=== PATIENT | male | born 1985 | race Caucasian/White ===

== ENCOUNTER → 2020-03-15 15:04 | Outpatient (CLI) | payer OTHER, SELFPAY ==
--- NOTE | ~2020-03-15 | XR_ITS ---
EXAMINATION: XR hip RT min 2V DATE: 03/15/2020 15:44 INDICATION: Right hip pain. TECHNIQUE: 2 views of right hip were obtained. COMPARISON: None. FINDINGS: Bone alignment is normal. No fracture. Right hip joint space is normal. IMPRESSION: 1. Normal right hip. Reviewed, dictated and finalized at location A. ING ANALYST IMPRESSION: 1. Normal right hip.
--- NOTE | ~2020-03-15 | XR_ITS ---
EXAMINATION: XR knee LT 3V DATE: 03/15/2020 15:45 INDICATION: Left knee pain. TECHNIQUE: 3 views of left knee on 4 radiographs were obtained. COMPARISON: None. FINDINGS: Bone alignment is normal. No fracture. Joint spaces are well maintained. There is no knee j oint effusion. There are multiple punctate densities overlying the soft tissues anterior and medial t o the proximal tibia. IMPRESSION: 1. Punctate densities overlying the soft tissues anterior and medial to the proximal tibia, which may be artifacts or less likely foreign bodies. Reviewed, dictated and finalized at location A. N BLEACHER IMPRESSION: 1. Punctate densities overlying the soft tissues anterior and medial to the pro ximal tibia, which may be artifacts or less likely foreign bodies.
--- NOTE | ~2020-03-15 | XR_ITS ---
EXAMINATION: XR knee RT 3V DATE: 03/15/2020 15:45 INDICATION: Right knee pain. TECHNIQUE: 3 views of right knee were obtained. COMPARISON: None. FINDINGS: Bone alignment is normal. No fracture. Joint spaces are well maintained. There is no knee j oint effusion. IMPRESSION: 1. Normal right knee. Reviewed, dictated and finalized at location A. NESS INFORMATION ANALYST IMPRESSION: 1. Normal right knee.
--- NOTE | ~2020-03-15 | XR_ITS ---
EXAMINATION: XR ankle RT min 3V DATE: 03/15/2020 15:45 INDICATION: Right ankle pain TECHNIQUE: Anteroposterior, oblique, mortise, and lateral views of the right ankle were obtained. COMPARISON: None. FINDINGS: Alignment is normal. No fracture. Joint spaces are well maintained. No ankle joint effusion. Modera te-sized plantar calcaneal spur. Additional small heterotopic ossicle 5 cm more distally along the pl wang aponeurosis. There is also heterotopic ossification likely along the peroneus longus tendon rodri ng the plantar aspect of the anterior calcaneus. IMPRESSION: 1. No acute osseous abnormality. 2. Plantar calcaneal spurs and small heterotopic ossification along the plantar aponeurosis. Reviewed, dictated and finalized at location B. TING FIELD ASSEMBLER
--- NOTE | ~2020-03-15 | XR_ITS ---
EXAMINATION: XR ankle LT min 3V DATE: 03/15/2020 15:46 INDICATION: Left ankle pain TECHNIQUE: Anteroposterior, oblique, mortise, and lateral views of the left ankle were obtained. COMPARISON: None. FINDINGS: Alignment is normal. There is approximately 1.2 cm long linear calcification without evident underlyi ng donor site along the lateral margin of the distal fibular diaphysis. There is underlying linear della cency crossing cortex but without evident fracture line extending across the trabecular or the medial , anterior posterior cortices suggests this could represent a nutrient foramen. No overlying soft tis madai swelling to suggest acute fracture. The calcific lesion is centered 8 cm proximal to the tip of t he lateral malleolus. Joint spaces are well maintained. No ankle joint effusion. IMPRESSION: 1. Small linear calcification in the soft tissues along the lateral margin of the distal left fibular diaphysis. There is a thin linear lucency across only the adjacent lateral cortex but no evident cor tical donor site or associated soft tissue swelling to suggest fracture. This most likely represents a nutrient foramen with adjacent dystrophic or atherosclerotic calcification but would correlate for point tenderness at this location. Reviewed, dictated and finalized at location B. L PAINTER IMPRESSION: 1. Small linear calcification in the soft tissues along the lateral margin of t he distal left fibular diaphysis. There is a thin linear lucency across only th e adjacent lateral cortex but no evident cortical donor site or associated soft tissue swelling to suggest fracture. This most likely represents a nutrient fo ramen with adjacent dystrophic or atherosclerotic calcification but would corre late for point tenderness at this location.
--- NOTE | ~2020-03-15 | XR_ITS ---
EXAMINATION: XR hip LT min 2V DATE: 03/15/2020 15:46 INDICATION: Left hip pain. TECHNIQUE: 2 views of left hip were obtained. COMPARISON: None. FINDINGS: Bone alignment is normal. No fracture. Left hip joint space is normal. IMPRESSION: 1. Normal left hip. Reviewed, dictated and finalized at location A. R BIKE MECHANIC IMPRESSION: 1. Normal left hip.
== END ==
PROVIDERS: PCP Internal Medicine; Visit Provider Internal Medicine
DX: M25.551 Pain in right hip (principal); M25.552 Pain in left hip; M25.561 Pain in right knee; M25.571 Pain in right ankle and joints of right foot; M77.32 Calcaneal spur, left foot; M77.31 Calcaneal spur, right foot; M79.89 Other specified soft tissue disorders
CPT/HCPCS: 73502; 73562; 73610

== ENCOUNTER 2020-11-24 07:44 | Emergency (ER) | payer OTHER, SELFPAY ==
[2020-11-24] VITALS (38 sets, daily range): BP systolic 122–160; BP diastolic 73–93; PULSE 43–94; RESP 12–22; TEMP 36.2–36.3; O2SAT 94–98
--- NOTE | ~2020-11-24 | XR_ITS ---
XR chest 2V DATE: 11/24/2020 08:12 INDICATION: Right chest pain for 2 weeks. Palpitations. TECHNIQUE: PA and lateral views COMPARISON: 09/24/2017 two-view chest 09/26/2017 CT pulmonary scan FINDINGS: Normal heart size. No hilar or mediastinal enlargement. No pulmonary infiltrate or consolidation, pleural effusion or pulmonary vascular congestion or pneumo thorax is detected. IMPRESSION: No active cardiopulmonary disease Reviewed, dictated and finalized at location A.
--- NOTE | 2020-11-24 07:55 | ECG_ITS ---
Measurements Intervals [place] Rate: 64 P: 26 NV: 148 QRS: -12 QRSD: 93 T: 22 QT: 386 QTc: 400 Interpretive Statements SINUS RHYTHM VOLTAGE CRITERIA FOR LVH BORDERLINE ECG Electronically Signed On 11-24-2020 11:16:11 CDT by Graham Salinas D.O.
--- NOTE | 2020-11-24 08:11 | ED.CHESTPAIN ---
HPI - Chest Pain General Chief Complaint: Chest Pain Stated Complaint: chest pain Time Seen by Provider: 11/24/20 07:47 Source: patient and RN notes reviewed Mode of arrival: ambulatory Limitations: no limitations History of Present Illness HPI narrative: This is a 35 year old male who presents for evaluation of right anterior chest pain. Patient states he has been having dull right anterior chest pain for 2 weeks. His pain seems to be worse with movement of arm, inspiration and changing positions. He denies associated nausea, vomiting, shortness of breath, cough or dizziness. He came to ER because last night his pain became worse. He rates his pain 3/10. He has not taken any thing for pain. He states 3 years ago he had similar pain and he was evaluated with stress test and specialist followup. He states his evaluation was unremarkable. He works out daily and he states his pain is not worse with working out. He admits to taking workout supplement with significant amount of caffeine. He also states he drinks 4-5 drinks daily but denies history of withdrawal symptoms. Related Data Home Medications Medication Instructions Recorded Confirmed No Home Medications 03/01/20 03/01/20 Allergies Allergy/AdvReac Type Severity Reaction Status Date / Time No Known Allergies Allergy Verified 11/24/20 07:53 Review of Systems Review of Systems: All systems reviewed & are unremarkable except as noted in HPI and below PMFSH Past Medical History Medical History Depression Family History Family History Mother Hypertension Father , Age 42 Brain Aneurysm No problems noted. Grandparent , in his 80's of Lung Cancer No problems noted. Grandparent , Age 80 of Stroke Myocardial infarct Grandparent Myocardial infarct Cerebrovascular accident Grandparent , Age 80 of Stroke No problems noted. Social History Social History Years smoked: 16 Smoking status: Former smoker Tobacco type: cigarettes Smoking end date: 02/19/15 Alcohol intake: current Drinks per week: 7 Substance use: never Gender identity (if verbalized by the patient): Male Exam Const: General: no acute distress and alert Orientation/consciousness: patient oriented x3 HENMT: Head: normocephalic and atraumatic Eyes: Pupils: Equal, round and reactive pupils present EOM: EOMs intact bilaterally Chest: Chest palpation & inspection: normal inspection of the chest Resp: Effort & Inspection: normal respiratory effort, no retractions and no use of accessory muscles Auscultation: clear to auscultation bilaterally Cardio: Rate: regular rate Rhythm: regular rhythm Heart sounds: no murmurs GI: GI Palp: Yes Soft to palpation, No Tenderness to palpation present (GI) and No Guarding due to palpation present (GI) Auscultation: normal bowel sounds Skin: General skin exam: normal color Rashes: no rashes Neuro: General: patient oriented x3, moves all extremities and CN's II-XI intact bilaterally Extrem: General: normal to inspection and no pedal edema Psych: Mental Status: mental status grossly normal Affect: normal affect Course Reevaluation(s) Reevaluation #1: I have discussed with patient labs showing elevated creatinine. His chest pain is atypical with negative troponin, negative d dimer. Equal arm pulse. Unlikely Aortic aneursym or dissection. He will follow up with PCP Date: 11/24/20 Time: 12:38 Vital Signs Vital signs: Vital Signs Temperature 97.1 F L 11/24/20 07:47 Pulse Rate 70 11/24/20 07:47 Respiratory Rate 16 11/24/20 07:47 Blood Pressure 160/90 H 11/24/20 07:47 Pulse Oximetry 96 11/24/20 07:47 Temperature 97.3 F L 11/24/20 13:17 Puls
[2020-11-24 08:36] LABS: Basophils Absolute Auto 0.1 K/mm3 (0.0-0.1); Basophils Percent Auto 0.7 % (0.2-1.2); Eosinophils Absolute Auto 0.1 K/mm3 (0-0.3); Hematocrit 47.7 % (42.0-52.0); Hemoglobin 16.3 g/dL (14.0-18.0); Immature Granulocyte Absolute 0.02 K/mm3 (0.00-0.031); Immature Granulocyte Percent A 0.3 % (0-0.5); Lymphocytes Absolute Auto 2.56 K/mm3 (0.9-3.2); Lymphocytes Percent Auto 36.6 % (18.3-44.2); Mean Corpuscular HGB Conc 34.2 g/dl (32-36); Mean Corpuscular Hemoglobin 30.1 pg (26-34); Mean Platelet Volume 9.4 fl (7.4-10.4); Monocytes Absolute Auto 0.6 K/mm3 (0.1-0.6); Monocytes Percent Auto 8.7 % (2.6-8.5); Neutrophils Absolute Auto 3.6 K/mm3 (1.3-6.7); Neutrophils Percent Auto 51.7 % (45.5-73.1); Platelet Count Result 229 k/mm3 (150-375); Red Blood Count 5.42 M/mm3 (4.6-6.20); Red Cell Distribution Width 12.2 % (11.5-14.5)
[2020-11-24 08:39] LABS: Alanine Aminotransferase 32 U/L (4-50); Albumin Level 4.8 g/dL (3.5-5.1); Alkaline Phosphatase 64 U/L (38-126); Anion Gap 5 mmol/L (8-16); Aspartate Amino Transferase 42 U/L (17-59); Bilirubin,Total 1.3 mg/dL (0.2-1.3); Blood Urea Nitrogen 18 mg/dL (9-20); Calcium 9.6 mg/dL (8.4-10.2); Carbon Dioxide 30 mmol/L (22-30); Chloride 103 mmol/L (98-107); Estimated CRCL calculation 72 ml/min; Estimated Glomerular Filt Rate 53; Glucose 107 mg/dL (65-110); Partial Thromboplastin Time 25.7 SECONDS (22.3-36.8); Potassium 4.5 mmol/L (3.4-5.0); Prothrombin Time 12.7 Seconds (11.1-14.7); Sodium 138 mmol/L (137-145)
[2020-11-24 08:51] LABS: Troponin I 0.019 ng/mL (0.000-0.034)
[2020-11-24 09:20] LABS: D Dimer 0.27 ug/mL (<0.48)
[2020-11-24] MEDS: KETOROLAC 30 MG/ML VIAL (*BKC) IV PUSH (09:55)
[2020-11-24 12:01] LABS: Troponin I 0.013 ng/mL (0.000-0.034)
== END 2020-11-24 13:19 | disposition home or self-care (01) ==
PROVIDERS: Emergency Provider General Practice; PCP Internal Medicine
DX: R07.89 Other chest pain (principal); N28.9 Disorder of kidney and ureter, unspecified; Z87.891 Personal history of nicotine dependence
CPT/HCPCS: 36415; 71046; 80048; 80076; 84484; 85025; 85380; 85610; 85730; 93005; 96374; 99284; J1885